=== PATIENT | male | born 1940 | race Caucasian/White ===

== ENCOUNTER → 2018-12-18 12:46 | Outpatient (CLI) | payer MEDICARE, OTHER, SELFPAY ==
--- NOTE | 2018-12-18 12:58 | DI.CT.S_ITS ---
PROCEDURE: CT CERVICAL SPINE WO CON INDICATIONS: Abnormal gait, hyperreflexia TECHNIQUE: Noncontrast 3 mm thick sections acquired from the skull base to the T4 level. Sagittal and coronal reformats were then constructed. For radiation dose reduction, the following was used: automated exposure control, adjustment of mA and/or kV according to patient size. COMPARISON: None. FINDINGS: Image quality: Excellent. Bones: No fractures or dislocations. Visualized superior ribs are intact. Advanced degenerative changes are seen, with moderate to severe disc space narrowing at C3-C4, C4-C5, C5-C6, and C6-C7. Minimal retrolisthesis is seen at each of these levels. Posterior directed osteophytes can be seen in each of these levels. There is at least moderate disc space narrowing seen at these levels. Moderate neural foraminal narrowing is seen at these levels. Soft tissues: Prevertebral soft tissues are normal in thickness. No paravertebral hematomas. No apical pneumothoraces. A left-sided central line is partially seen. IMPRESSION: Relatively prominent cervical spine degenerative changes are seen. Dictated by: Brannon Salvador M.D. on 12/18/2018 at 13:16 Approved by: Brannon Salvador M.D. on 12/18/2018 at 13:18
== END ==
PROVIDERS: Family Provider Family Medicine; PCP Family Medicine; Visit Provider Psychiatry & Neurology Neurology
DX: R26.9 Unspecified abnormalities of gait and mobility (principal); R29.2 Abnormal reflex; M47.812 Spondylosis without myelopathy or radiculopathy, cervical region
CPT/HCPCS: 72125